=== PATIENT | male | born 1960 | race Caucasian/White ===

== ENCOUNTER 2019-03-21 04:08 | Emergency (ER) | payer MEDICARE, MEDICAID ==
[~2019-03-21] VITALS: Ht 175.3 cm; Wt 72.7 kg
[2019-03-21 04:12] VITALS: BP 157/102
[2019-03-21] MEDS ORDERED: ketorolac trometh inj. 60 MG/2 ML VIAL IM ONE (04:35)
== END 2019-03-21 04:51 | disposition home or self-care (01) ==
LOC: ER 04:09
DX: S52.691A Other fracture of lower end of right ulna, initial encounter for closed fracture (principal); F41.9 Anxiety disorder, unspecified; Z88.5 Allergy status to narcotic agent; Z88.6 Allergy status to analgesic agent; Z88.8 Allergy status to other drugs, medicaments and biological substances; W01.0XXA Fall on same level from slipping, tripping and stumbling without subsequent striking against object, initial encounter; Y93.89 Activity, other specified; Y92.89 Other specified places as the place of occurrence of the external cause; Y99.8 Other external cause status
CPT/HCPCS: 29125; 73110; 96372; 99283; J1885